=== PATIENT | male | born 2005 | race Caucasian/White ===

== ENCOUNTER 2025-04-07 17:49 | Emergency (ER) | payer BC ==
[~2025-04-07] VITALS: Ht 188 cm; Wt 71.0 kg
[2025-04-07 18:09] VITALS: TEMP 36.8; O2SAT 97
[2025-04-07] MEDS: FAMOTIDINE 20MG/2ML VIAL IV ONE (19:12)
[2025-04-07] MEDS: SODIUM CHLORIDE 0.9% 1,000 ML IV ONE (19:12)
[2025-04-07] MEDS: ONDANSETRON HCL 4MG/2ML INJ IV ONE (19:12)
[2025-04-07 19:39] LABS: BASOPHILS % 0.4 % (0.0-2.0); EOSINOPHILS % 0.7 % (0.0-5.0); HEMATOCRIT. 43.4 % (42.0-52.0); HEMOGLOBIN. 13.9 g/dL (14.0-18.0); LYMPHOCYTES % 17.0 % (20.0-50.0); MEAN PLATELET VOLUME 9.8 fl (7.4-10.4); MONOCYTES % 9.0 % (2.0-8.0); NEUTROPHILS % 72.9 % (40.0-76.0); PLATELET 234 x1000/uL (130-400); RED BLOOD CELL COUNT 5.65 mill/uL (4.7-6.1); RED CELL DISTRIBUTION WIDTH 14.3 % (11.6-14.6)
[2025-04-07 19:52] LABS: CREATININE 1.0 mg/dL (0.6-1.3)
[2025-04-07 19:53] LABS: ETHANOL BLOOD 56 mg/dL (<10); UREA NITROGEN BLOOD 14 mg/dL (9-23)
[2025-04-07 20:17] VITALS: BP 125/60; PULSE 108; RESP 19; O2SAT 100
== END 2025-04-07 20:58 | disposition home or self-care (01) ==
LOC: ER 17:49
DX: F10.129 Alcohol abuse with intoxication, unspecified (principal); F12.90 Cannabis use, unspecified, uncomplicated; Y90.9 Presence of alcohol in blood, level not specified
CPT/HCPCS: 80048; 80320; 85025; 36415; 96361; 96374; 96375; 99284; J1308; J2405; J7030; G0480